=== PATIENT | female | born 1970 | race Caucasian/White ===

== ENCOUNTER → 2020-07-05 | Outpatient (REF) | payer OTHER, BC ==
[2020-07-05 16:44] LABS: BASO % 0.6 % (0.0-1.0); EOS # 0.1 10^3/uL (0.0-0.5); EOS % 2.1 % (0.0-3.0); HEMATOCRIT 41.6 % (36.0-47.0); HEMOGLOBIN 13.9 g/dl (12.0-15.5); LYMPH # 2.9 10^3/uL (1.5-5.0); LYMPH % 46.5 % (24.0-44.0); MEAN CORPUSCULAR HEMOGLOBIN 29.5 pg (27.0-33.0); MEAN CORPUSCULAR HGB CONC 33.4 g/dl (32.0-36.5); MEAN CORPUSCULAR VOLUME 88.3 fl (80.0-96.0); MONO # 0.4 10^3/uL (0.0-0.8); MONO % 6.4 % (0.0-5.0); NEUTROPHILS # 2.8 10^3/uL (1.5-8.5); NEUTROPHILS % 44.1 % (36.0-66.0); PLATELET COUNT, AUTOMATED 296 10^3/uL (150-450); RED BLOOD COUNT 4.71 10^6/uL (4.00-5.40); WHITE BLOOD COUNT 6.3 10^3/uL (4.0-10.0)
[2020-07-05 17:26] LABS: ALBUMIN 4.1 GM/DL (3.2-5.2); ALT/SGPT 30 U/L (12-78); BILIRUBIN,TOTAL 0.5 MG/DL (0.2-1.0); BLOOD UREA NITROGEN 18 MG/DL (7-18); CARBON DIOXIDE LEVEL 21 MEQ/L (21-32); CHLORIDE LEVEL 101 MEQ/L (98-107); CREATININE FOR GFR 0.71 MG/DL (0.55-1.30); GLOMERULAR FILTRATION RATE > 60.0 (>51); GLUCOSE, FASTING 343 MG/DL (70-100); POTASSIUM SERUM 4.6 MEQ/L (3.5-5.1); SODIUM LEVEL 133 MEQ/L (136-145); TOTAL PROTEIN 7.4 GM/DL (6.4-8.2)
[2020-07-05 17:46] LABS: HEMOGLOBIN A1c 13.3 %
[2020-07-06 12:06] LABS: CREATININE, URINE 55.3 MG/DL; MALB URINE SIEMENS 13.7 MG/L; MAU/CREAT RATIO 24.7 MCG/MG (0.0-30.0)
== END ==
LOC: M LAB REF 16:20
PROVIDERS: ATTEND Physician Assistant
DX: F41.1 Generalized anxiety disorder (principal); E11.9 Type 2 diabetes mellitus without complications

== ENCOUNTER → 2020-08-09 | Outpatient (REF) | payer OTHER ==
[2020-08-09 13:41] LABS: BLOOD UREA NITROGEN 17 MG/DL (7-18); CALCIUM LEVEL 9.4 MG/DL (8.5-10.1); CARBON DIOXIDE LEVEL 24 MEQ/L (21-32); CHLORIDE LEVEL 99 MEQ/L (98-107); CHOLESTEROL LEVEL 238 MG/DL (<200); CREATININE FOR GFR 0.68 MG/DL (0.55-1.30); GLOMERULAR FILTRATION RATE > 60.0 (>51); GLUCOSE, FASTING 292 MG/DL (70-100); HDL CHOLESTEROL 53 MG/DL (>40); LDL CHOLESTEROL 149 MG/DL (<100); NON-HDL-C 185 MG/DL; POTASSIUM SERUM 4.2 MEQ/L (3.5-5.1); SODIUM LEVEL 130 MEQ/L (136-145); TRIGLYCERIDES LEVEL 181 MG/DL (<150)
== END ==
LOC: M LAB REF 12:45
PROVIDERS: ATTEND Physician Assistant
DX: E11.65 Type 2 diabetes mellitus with hyperglycemia (principal)

== ENCOUNTER → 2020-09-14 | Outpatient (REF) | payer BC, OTHER ==
[2020-09-14 22:37] LABS: APPEARANCE, URINE CLOUDY (CLEAR); BACTERIA, URINE AUTO NEGATIVE (NEGATIVE); BILIRUBIN, URINE AUTO NEGATIVE (NEGATIVE); BLOOD, URINE BLOOD 2+ (NEGATIVE); CALCIUM OXALATE CRYSTALS MODERATE; COLOR, URINE YELLOW (YELLOW); GLUCOSE, URINE (UA) AUTO 3+ mg/dL (NEGATIVE); KETONE, URINE AUTO TRACE mg/dL (NEGATIVE); LEUKOCYTE ESTERASE, URINE AUTO 1+ (NEGATIVE); MUCUS, URINE SMALL (NEGATIVE); NITRITE, URINE AUTO NEGATIVE (NEGATIVE); PROTEIN, URINE AUTO NEGATIVE (NEGATIVE); RBC, URINE AUTO 10 /HPF (0-3); SPECIFIC GRAVITY URINE AUTO 1.031 (1.002-1.035); SQUAMOUS EPITHELIAL CELL UR AU 1 /HPF (0-6); UROBILINOGEN, URINE AUTO 0.2 mg/dL (0.0-2.0); WBC, URINE AUTO 103 /HPF (0-3)
== END ==
LOC: M LAB 22:04
PROVIDERS: ATTEND Physician Assistant
DX: N39.0 Urinary tract infection, site not specified (principal)

== ENCOUNTER → 2020-09-20 | Outpatient (REF) | payer OTHER ==
[2020-09-20 16:26] LABS: ALBUMIN 3.9 GM/DL (3.2-5.2); BILIRUBIN,TOTAL 0.6 MG/DL (0.2-1.0); CALCIUM LEVEL 9.1 MG/DL (8.5-10.1); CREATININE FOR GFR 1.06 MG/DL (0.55-1.30); GLOMERULAR FILTRATION RATE 58.4 (>51); POTASSIUM SERUM 4.5 MEQ/L (3.5-5.1)
[2020-09-20 16:31] LABS: HEMATOCRIT 37.3 % (36.0-47.0); HEMOGLOBIN 12.5 g/dl (12.0-15.5); MEAN CORPUSCULAR HEMOGLOBIN 29.9 pg (27.0-33.0); MEAN CORPUSCULAR HGB CONC 33.5 g/dl (32.0-36.5); MEAN CORPUSCULAR VOLUME 89.2 fl (80.0-96.0); PLATELET COUNT, AUTOMATED 358 10^3/uL (150-450); RED BLOOD COUNT 4.18 10^6/uL (4.00-5.40); WHITE BLOOD COUNT 5.7 10^3/uL (4.0-10.0)
[2020-09-20 17:33] LABS: HEMOGLOBIN A1c 10.7 %
== END ==
LOC: M LAB REF 15:43
PROVIDERS: ATTEND Physician Assistant
DX: E11.65 Type 2 diabetes mellitus with hyperglycemia (principal)

== ENCOUNTER → 2021-04-02 | Outpatient (CLI) | payer BC, OTHER ==
--- NOTE | 2021-04-02 17:08 | REPVR ---
PROCEDURE INFORMATION: Exam: CT Maxillofacial Without Contrast, Sinus Exam date and time: 04/02/2021 1:38 PM Age: 51 years old Clinical indication: Maxilla pain; Additional info: Chronic sinusitis TECHNIQUE: Imaging protocol: CT Maxillofacial without contrast. Focus on the sinuses. Radiation optimization: All CT scans at this facility use at least one of these dose optimization techniques: automated exposure control; mA and/or kV adjustment per patient size (includes targeted exams where dose is matched to clinical indication); or iterative reconstruction. COMPARISON: No relevant prior studies available. FINDINGS: Frontal sinuses: Normal. No air-fluid levels. Ethmoid air cells: Normal. No air-fluid levels. Sphenoid sinuses: Normal. No air-fluid levels. Maxillary sinuses: Normal. No air-fluid levels. Ostiomeatal units are patent. Nasal cavity/Septum: Leftward bowing of the anterior nasal septum is present. Orbital cavity: Orbits are normal. Globes are unremarkable. Bones/joints: Unremarkable. Soft tissues: Unremarkable. IMPRESSION: No acute abnormality. Electronically signed by: Blair Polanco On 04/02/2021 17:08:15 PM
== END ==
LOC: M PLAIMG 13:15
PROVIDERS: ATTEND Physician Assistant
DX: J32.9 Chronic sinusitis, unspecified (principal)

== ENCOUNTER 2021-12-10 07:52 | Emergency (ER) | payer BC, OTHER ==
[~2021-12-10] VITALS: Ht 154.9 cm; Wt 65.9 kg
[2021-12-10 07:52] VITALS: BP 187/81
[2021-12-10] MEDS ORDERED: HYDR12.55 (08:02)
[2021-12-10] MEDS ORDERED: GLIP10TA18 (08:02)
[2021-12-10] MEDS ORDERED: ALBU8.5H (08:02)
[2021-12-10] MEDS ORDERED: ADV250INH (08:02)
[2021-12-10] MEDS ORDERED: HYDR-643 (08:02)
[2021-12-10] MEDS ORDERED: METF10004 (08:02)
[2021-12-10] MEDS ORDERED: ASPI-226 (08:02)
[2021-12-10] MEDS ORDERED: MELO15TA28 (08:02)
[2021-12-10] MEDS ORDERED: LANTINJ4 (08:02)
[2021-12-10] MEDS ORDERED: ATOR1TAB19 (08:02)
[2021-12-10] MEDS ORDERED: LOSA50TA28 (08:02)
[2021-12-10] MEDS ORDERED: AMLO1TAB24 (08:02)
[2021-12-10] MEDS ORDERED: LEXA1TAB2 (08:02)
[2021-12-10] MEDS ORDERED: IBUP-1022 PO (08:06)
[2021-12-10] MEDS ORDERED: ACETAMINOPHEN 325 MG TAB PO ONE (09:55)
== END 2021-12-10 10:22 | disposition home or self-care (01) ==
LOC: M ED 07:52
DX: S83.411A Sprain of medial collateral ligament of right knee, initial encounter (principal); X50.9XXA Other and unspecified overexertion or strenuous movements or postures, initial encounter; I10 Essential (primary) hypertension; E78.5 Hyperlipidemia, unspecified; E11.9 Type 2 diabetes mellitus without complications; Z79.84 Long term (current) use of oral hypoglycemic drugs; Z79.51 Long term (current) use of inhaled steroids; Z79.899 Other long term (current) drug therapy

== ENCOUNTER → 2021-12-10 | Outpatient (CLI) | payer BC, OTHER ==
[~2021-12-10] MED LIST: ADV250INH; ALBU8.5H; AMLO1TAB24; ASPI-226; ATOR1TAB19; GLIP10TA18; HYDR-643; HYDR12.55; IBUP-1022 PO; LANTINJ4; LEXA1TAB2; LOSA50TA28; MELO15TA28; METF10004
== END ==
LOC: M RAD 07:35
PROVIDERS: ATTEND Nurse Practitioner Family
DX: J32.4 Chronic pansinusitis (principal)

== ENCOUNTER → 2022-06-20 | Outpatient (CLI) | payer BC, OTHER | LOC: M WUC 09:55 | PROVIDERS: ATTEND Physician Assistant | DX: M54.50 Low back pain, unspecified (principal); M54.32 Sciatica, left side ==

== ENCOUNTER → 2022-12-16 | Outpatient (REF) | payer OTHER ==
[2022-12-16 17:10] LABS: CALCIUM LEVEL 8.6 MG/DL (8.5-10.1); CREATININE FOR GFR 1.28 MG/DL (0.55-1.30); GLOMERULAR FILTRATION RATE 46.6 (>51); POTASSIUM SERUM 4.7 MMOL/L (3.5-5.1)
[2022-12-16 17:31] LABS: HEMOGLOBIN A1c 8.5 % (4.0-6.0)
[2022-12-16 17:47] LABS: HEPATITIS C VIRUS ABY INDEX 0.1 INDEX (<0.8)
== END ==
LOC: M LAB REF 16:07
PROVIDERS: ATTEND Physician Assistant
DX: Z11.59 Encounter for screening for other viral diseases (principal); I10 Essential (primary) hypertension; E11.8 Type 2 diabetes mellitus with unspecified complications

== ENCOUNTER → 2023-02-04 | Outpatient (REF) | payer OTHER ==
[2023-02-04 18:37] LABS: ALBUMIN 4.1 G/DL (3.2-5.2); CREATININE FOR GFR 1.2 MG/DL (0.55-1.30); PHOSPHORUS LEVEL 3.1 MG/DL (2.5-4.9)
== END ==
LOC: M LAB REF 17:16
PROVIDERS: ATTEND Physician Assistant
DX: N18.9 Chronic kidney disease, unspecified (principal)

== ENCOUNTER → 2023-04-13 | Outpatient (REF) | payer OTHER | LOC: M LAB REF 04-11 16:28 | PROVIDERS: ATTEND Nurse Practitioner Family | DX: R19.7 Diarrhea, unspecified (principal) ==

== ENCOUNTER → 2023-04-14 | Outpatient (REF) | payer OTHER ==
[2023-04-14 17:43] LABS: BLOOD UREA NITROGEN 24 MG/DL (9-23); CALCIUM LEVEL 10.2 MG/DL (8.5-10.1); CARBON DIOXIDE LEVEL 19 MMOL/L (20-31); CHLORIDE LEVEL 108 MMOL/L (98-107); GLUCOSE, FASTING 167 MG/DL (60-100); POTASSIUM SERUM 4.5 MMOL/L (3.5-5.1); SODIUM LEVEL 138 MMOL/L (136-145)
== END ==
LOC: M LAB REF 16:42
PROVIDERS: ATTEND Nurse Practitioner Family
DX: Z11.9 Encounter for screening for infectious and parasitic diseases, unspecified (principal); E87.6 Hypokalemia

== ENCOUNTER → 2023-11-07 | Outpatient (REF) | payer OTHER ==
[2023-11-07 12:39] LABS: ALBUMIN 3.9 G/DL (3.2-5.2); BILIRUBIN,TOTAL 0.3 MG/DL (0.3-1.2); CALCIUM LEVEL 9.4 MG/DL (8.5-10.1); CHOLESTEROL RISK RATIO 5.31 (<5); CREATININE FOR GFR 1.6 MG/DL (0.55-1.30); GLOMERULAR FILTRATION RATE 35.9 (>51); HDL CHOLESTEROL 31.4 MG/DL (>40); LDL CHOLESTEROL 97.6 MG/DL (<100); NON-HDL-C 135.6 MG/DL; POTASSIUM SERUM 4.7 MMOL/L (3.5-5.1); TOTAL PROTEIN 7.1 G/DL (5.7-8.2)
[2023-11-07 12:42] LABS: CREATININE, URINE 88.7 MG/DL
[2023-11-07 12:44] LABS: MAU/CREAT RATIO 215.3 MCG/MG (0.0-30.0)
[2023-11-07 12:45] LABS: HEMATOCRIT 34.6 % (36.0-47.0); HEMOGLOBIN 11.5 g/dl (12.0-15.5); MEAN CORPUSCULAR HEMOGLOBIN 29.4 pg (27.0-33.0); MEAN CORPUSCULAR HGB CONC 33.2 g/dl (32.0-36.5); MEAN CORPUSCULAR VOLUME 88.5 fl (80.0-96.0); PLATELET COUNT, AUTOMATED 334 10^3/uL (150-450); RED BLOOD COUNT 3.91 10^6/uL (4.00-5.40); WHITE BLOOD COUNT 7.5 10^3/uL (4.0-10.0)
[2023-11-07 12:54] LABS: HEMOGLOBIN A1c 9.5 % (4.0-6.0)
== END ==
LOC: M LAB REF 11:21
PROVIDERS: ATTEND Physician Assistant
DX: E11.65 Type 2 diabetes mellitus with hyperglycemia (principal)

== ENCOUNTER → 2024-02-04 | Outpatient (REF) | payer OTHER ==
[2024-02-04 17:14] LABS: HEMATOCRIT 27.5 % (36.0-47.0); MEAN CORPUSCULAR HEMOGLOBIN 29.5 pg (27.0-33.0); MEAN CORPUSCULAR HGB CONC 32.7 g/dl (32.0-36.5); MEAN CORPUSCULAR VOLUME 90.2 fl (80.0-96.0); PLATELET COUNT, AUTOMATED 287 10^3/uL (150-450); RED BLOOD COUNT 3.05 10^6/uL (4.00-5.40); WHITE BLOOD COUNT 6.2 10^3/uL (4.0-10.0)
[2024-02-04 17:26] LABS: CALCIUM LEVEL 8.8 MG/DL (8.5-10.1); CREATININE FOR GFR 1.27 MG/DL (0.55-1.30); GLOMERULAR FILTRATION RATE 46.7 (>51); POTASSIUM SERUM 4.4 MMOL/L (3.5-5.1)
== END ==
LOC: M LAB REF 16:32
PROVIDERS: ATTEND Physician Assistant
DX: N18.9 Chronic kidney disease, unspecified (principal); E11.65 Type 2 diabetes mellitus with hyperglycemia

== ENCOUNTER → 2024-03-15 | Outpatient (REF) | payer OTHER ==
[2024-03-15 17:35] LABS: CALCIUM LEVEL 9.3 MG/DL (8.5-10.1); CREATININE FOR GFR 1.45 MG/DL (0.55-1.30); GLOMERULAR FILTRATION RATE 40.1 (>51); PERCENT SATURATION 21.3 % (13.2-45.0); POTASSIUM SERUM 4.8 MMOL/L (3.5-5.1)
[2024-03-15 17:38] LABS: FERRITIN 78.3 NG/ML (7.3-270.7); THYROID STIMULATING HORMONE 5.501 uIU/ML (0.55-4.78)
== END ==
LOC: M LAB REF 16:49
PROVIDERS: ATTEND Physician Assistant
DX: I10 Essential (primary) hypertension (principal); D64.9 Anemia, unspecified

== ENCOUNTER → 2024-06-15 | Outpatient (REF) | payer OTHER ==
[2024-06-15 15:02] LABS: ALBUMIN 3.7 G/DL (3.2-5.2); CALCIUM LEVEL 9.6 MG/DL (8.5-10.1); CREATININE FOR GFR 1.9 MG/DL (0.55-1.30); GLOMERULAR FILTRATION RATE 29.3 (>51); PHOSPHORUS LEVEL 5.1 MG/DL (2.5-4.9); POTASSIUM SERUM 5.3 MMOL/L (3.5-5.1)
[2024-06-15 15:11] LABS: THYROID STIMULATING HORMONE 3.165 uIU/ML (0.55-4.78)
== END ==
LOC: M LAB REF 13:05
PROVIDERS: ATTEND Physician Assistant
DX: N18.9 Chronic kidney disease, unspecified (principal); E03.9 Hypothyroidism, unspecified

== ENCOUNTER → 2024-07-13 | Outpatient (CLI) | payer BC | LOC: M RAD 08:43 | PROVIDERS: ATTEND Internal Medicine Nephrology | DX: N18.32 Chronic kidney disease, stage 3b (principal) ==

== ENCOUNTER → 2024-12-06 | Outpatient (CLI) | payer BC ==
[~2024-12-06] MED LIST changes: -ADV250INH; +ADVA1AER9; +GLIP-320; -GLIP10TA18
== END ==
LOC: M RAD 08:12
PROVIDERS: ATTEND Internal Medicine Nephrology
DX: I70.1 Atherosclerosis of renal artery (principal)

== ENCOUNTER → 2024-12-15 | Outpatient (REF) | payer BC, OTHER | LOC: M LAB REF 17:36 | PROVIDERS: ATTEND Internal Medicine Nephrology | DX: D50.9 Iron deficiency anemia, unspecified (principal) ==

== ENCOUNTER → 2024-12-31 | Outpatient (CLI) | payer BC, OTHER | LOC: M LAB 11:18 | PROVIDERS: ATTEND Nurse Practitioner Family | DX: E11.65 Type 2 diabetes mellitus with hyperglycemia (principal) ==

== ENCOUNTER → 2025-04-01 | Outpatient (CLI) | payer BC | LOC: M WUC 12:18 | PROVIDERS: ATTEND Nurse Practitioner Family | DX: E11.65 Type 2 diabetes mellitus with hyperglycemia (principal) ==

== ENCOUNTER 2025-04-27 13:33 | Observation (INO) | payer BC ==
[~2025-04-27] VITALS: Ht 154.9 cm; Wt 69.9 kg
[~2025-04-27 13:33] MED LIST changes: -ADVA1AER9; +ADVA1AER9 INH; -ALBU8.5H; +ALBU8.5H INH; +AMLO1TAB25 PO; -ASPI-226; +ASPI-226 PO; -ATOR1TAB19; +ATOR1TAB19 PO; +CALC667T4 PO; +FARX1TAB3 PO; +FLUTISP; +HYDR-3490 PO; +HYDR100T PO; -LANTINJ4; +LANTINJ4 INJ; +LEVOTAB10 PO; +LEXA1TAB2 PO; +LOSA100T46 PO; +NOVOINJ3 INJ; +ONDA-83 PO
[2025-04-27] MEDS ORDERED: GLYCOPYRROLATE INJ 0.2 MG/ML 2 ML VIAL As Ordered ONE (14:30)
[2025-04-27] MEDS ORDERED: MIDAZOLAM INJ 2 MG/2 ML VIAL As Ordered ONE (14:30)
[2025-04-27] MEDS ORDERED: LIDOCAINE 2% 100 MG/5 ML SDV (FOR ANES.) As Ordered ONE (14:31)
[2025-04-27] MEDS ORDERED: NEOSTIGMINE 10 MG/10 ML VIAL As Ordered ONE (14:31)
[2025-04-27] MEDS ORDERED: ONDANSETRON 4MG 2ML VIAL As Ordered ONE (14:31)
[2025-04-27] MEDS ORDERED: dexAMETHasone 4 MG/ML 1 ML VIAL As Ordered ONE (14:31)
[2025-04-27] MEDS ORDERED: CISATRACURIUM 2 MG/ML 5 ML VIAL As Ordered ONE (14:43)
[2025-04-27] MEDS: LR 1,000 ML IV SCH ×2 (15:05→17:10)
[2025-04-27] MEDS: SCOPOLAMINE 1MG TRANSDERMAL PATCH TOP ONE (15:14)
[2025-04-27] MEDS ORDERED: ACETAMINOPHEN 1000MG/100ML IV BAG As Ordered ONE (15:30)
[2025-04-27] MEDS ORDERED: CALCIUM CHLORIDE 10% 1 GM/10 ML SYR As Ordered ONE (15:57)
[2025-04-27] MEDS: HEPARIN SOD 5000 UNITS/ML 1 ML VIAL/SYRINGE As Ordered ONE (16:33)
[2025-04-27] MEDS ORDERED: DEXTROSE 50% 50 ML SYRINGE As Ordered ONE (16:58)
[2025-04-27] MEDS: DEXTROSE 50% 50 ML SYRINGE IV STA (16:59)
[2025-04-27] MEDS: ONDANSETRON 4MG 2ML VIAL IV PRN (17:07)
[2025-04-27] MEDS ORDERED: HYDROMORPHONE HCL 0.5 MG/0.5 ML SYRINGE IV PRN (17:10)
[2025-04-27] MEDS: LABETALOL 100 MG/20 ML VIAL IV PRN (17:34)
[2025-04-27] MEDS: **hydrALAZINE** 50 MG TAB PO ONE (17:38)
[2025-04-27] MEDS: hydroCHLOROthiazide 25 MG TAB PO ONE (17:38)
[2025-04-27] MEDS: LOSARTAN 50 MG TABLET PO ONE (17:38)
[2025-04-27] MEDS: hydrALAZINE 20 MG/ML 1 ML VIAL IV PRN (18:04)
[2025-04-27 19:19] LABS: BASO # 0.0 10^3/uL (0.0-0.2); BASO % 0.5 % (0.0-1.0); EOS # 0.1 10^3/uL (0.0-0.5); EOS % 1.2 % (0.0-3.0); LYMPH # 1.7 10^3/uL (1.5-5.0); LYMPH % 22.6 % (24.0-44.0); MONO # 0.2 10^3/uL (0.0-0.8); MONO % 2.2 % (2.0-8.0); NEUTROPHILS # 5.4 10^3/uL (1.5-8.5); NEUTROPHILS % 73.2 % (36.0-66.0); PLATELET COUNT, AUTOMATED 246 10^3/uL (150-450)
[2025-04-27] MEDS ORDERED: GLUCAGON INJ 1 MG VIAL SC PRN (19:30)
[2025-04-27] MEDS ORDERED: DEXTROSE 50% 50 ML SYRINGE IV PRN (19:30)
[2025-04-27] MEDS ORDERED: GLUCOSE 4 GM CHEW PO PRN (19:30)
[2025-04-27 19:49] LABS: ALT/SGPT 17.0 U/L (7.0-40); AST/SGOT 19.0 U/L (<34); CALCIUM LEVEL 9.8 MG/DL (8.5-10.1); CARBON DIOXIDE LEVEL 13.0 MMOL/L (20-31); CHLORIDE LEVEL 113.0 MMOL/L (98-107); CREATININE FOR GFR 3.86 MG/DL (0.55-1.30); GLOMERULAR FILTRATION RATE 13.2 (>51); MAGNESIUM LEVEL 2.4 MG/DL (1.8-2.4); PHOSPHORUS LEVEL 4.1 MG/DL (2.5-4.9); POTASSIUM SERUM 4.5 MMOL/L (3.5-5.1); SODIUM LEVEL 142.0 MMOL/L (136-145)
[2025-04-27 20:05] VITALS: BP 150/66; TEMP 98.2; O2SAT 97
[2025-04-27 20:41] VITALS: BP 163/69; TEMP 98.3; O2SAT 96
[2025-04-27] MEDS ORDERED: HOME MED LIST COMPLETE! XX SCH (21:00)
[2025-04-27] MEDS: INSULIN LISPRO (NovoLOG) PER UNIT SC SCH (21:00)
[2025-04-27 21:05] VITALS: BP 151/68; TEMP 98.5; O2SAT 98
[2025-04-27] MEDS: DOCUSATE SODIUM 100 MG CAPSULE PO SCH (21:33)
[2025-04-27] MEDS: ACETAMINOPHEN 325 MG TAB PO PRN (21:34)
[2025-04-27 22:00] VITALS: BP 136/63; TEMP 98.6; O2SAT 95
[2025-04-27 23:00] VITALS: BP 152/65; TEMP 98.6; O2SAT 96
[2025-04-27] MEDS ORDERED: ALBUTEROL 90 MCG/ACT 8 GM HFA INHALER INH PRN (23:30)
[2025-04-27] MEDS ORDERED: ADVAIR HFA 115/21 MCG INHALER INH PRN (23:30)
[2025-04-27] MEDS ORDERED: ONDANSETRON 4MG TAB PO PRN (23:30)
[2025-04-28] VITALS: BP 122/58; TEMP 98.5; O2SAT 96
[2025-04-28] MEDS: ATORVASTATIN 10 MG TAB PO SCH (00:13)
[2025-04-28] MEDS: LanTUS (INSULIN GLARGINE INJ) 1 UNITS/0.01 ML SC SCH (00:13)
[2025-04-28] MEDS: FLUTICASONE PROPIONATE 0.05% NASAL SPRAY 16 GM SCH (00:33)
[2025-04-28 01:00] VITALS: BP 126/57; TEMP 98.7; O2SAT 97
[2025-04-28 03:28] VITALS: BP 122/58; TEMP 98.6; O2SAT 98
[2025-04-28 07:32] LABS: PLATELET COUNT, AUTOMATED 233 10^3/uL (150-450)
[2025-04-28 08:09] VITALS: BP 177/74
[2025-04-28] MEDS: ESCITALOPRAM OXALATE 10 MG TABLET PO SCH (08:09)
[2025-04-28] MEDS: **hydrALAZINE** 50 MG TAB PO SCH (08:09)
[2025-04-28] MEDS: ASPIRIN 81 MG ENTERIC TABLET PO SCH (08:10)
[2025-04-28] MEDS: hydroCHLOROthiazide 25 MG TAB PO SCH (08:10)
[2025-04-28] MEDS: CALCIUM ACETATE 667 MG GELCAP PO SCH (08:10)
[2025-04-28] MEDS: amLODIPine 10 MG TAB PO SCH (08:10)
[2025-04-28] MEDS: DAPAGLIFLOZIN PROPANEDIOL 10 MG TABLET PO SCH (08:10)
[2025-04-28] MEDS: CETIRIZINE 10 MG TAB PO SCH (08:10)
[2025-04-28] MEDS: INSULIN LISPRO (NovoLOG) PER UNIT SC SCH (08:11)
[2025-04-28] MEDS: LOSARTAN 50 MG TABLET PO SCH (08:11)
[2025-04-28 08:15] VITALS: BP 177/74; TEMP 98.8; O2SAT 99
[2025-04-28] MEDS ORDERED: ACET32TAB PO (08:16)
[2025-04-28 08:28] LABS: ALT/SGPT 11.0 U/L (7.0-40); AST/SGOT 18.0 U/L (<34); CALCIUM LEVEL 9.2 MG/DL (8.5-10.1); CARBON DIOXIDE LEVEL 16.0 MMOL/L (20-31); CHLORIDE LEVEL 107.0 MMOL/L (98-107); CREATININE FOR GFR 4.2 MG/DL (0.55-1.30); GLOMERULAR FILTRATION RATE 11.9 (>51); MAGNESIUM LEVEL 2.3 MG/DL (1.8-2.4); POTASSIUM SERUM 5.9 MMOL/L (3.5-5.1); SODIUM LEVEL 137.0 MMOL/L (136-145)
[2025-04-28] MEDS ORDERED: DOXA1TAB42 PO (08:56)
[2025-04-28] MEDS ORDERED: FLUTICASONE PROPIONATE 0.05% NASAL SPRAY 16 GM SCH (09:00)
[2025-04-28] MEDS: PATIROMER SORBITEX CALCIUM 8.4GM POWDER PACKET PO ONE (09:29)
[2025-04-28] MEDS ORDERED: PATIROMER SORBITEX CALCIUM 8.4GM POWDER PACKET PO SCH (12:00)
[2025-04-29] MEDS ORDERED: PATIROMER SORBITEX CALCIUM 8.4GM POWDER PACKET PO SCH (12:00)
== END 2025-04-28 09:38 | disposition home or self-care (01) ==
LOC: M SDC 13:33 → M RR INP 13:34 → M MS4PR 20:02
PROVIDERS: ADMIT Student in an Organized Health Care Education/Training Program; ATTEND Surgery
DX: N18.6 End stage renal disease (principal); E11.22 Type 2 diabetes mellitus with diabetic chronic kidney disease; I12.0 Hypertensive chronic kidney disease with stage 5 chronic kidney disease or end stage renal disease; G43.909 Migraine, unspecified, not intractable, without status migrainosus; J45.909 Unspecified asthma, uncomplicated; Z79.51 Long term (current) use of inhaled steroids; Z79.4 Long term (current) use of insulin; Z79.82 Long term (current) use of aspirin; Z79.899 Other long term (current) drug therapy; F41.9 Anxiety disorder, unspecified
CPT/HCPCS: 36415; 49324; 80053; 83735; 84100; 84132; 85025; 85027; 93005; J0131; J0360; J0618; J0665; J0690; J1100; J1596; J1815; J1920; J2250; J2405; J2710; J3010

== ENCOUNTER → 2025-05-02 | Outpatient (CLI) | payer BC ==
[~2025-05-02] MED LIST changes: +ACET32TAB PO; +DOXA1TAB42 PO; -IBUP-1022 PO; +IBUP600T42 PO
[2025-05-02 19:32] LABS: HEPATITIS C VIRUS ABY INDEX < 0.02 INDEX (<0.8)
== END ==
LOC: M WUC 15:42
PROVIDERS: ATTEND Internal Medicine Nephrology
DX: N18.6 End stage renal disease (principal)

== ENCOUNTER → 2025-05-12 | Outpatient (CLI) | payer BC | LOC: M RAD 16:02 | PROVIDERS: ATTEND Internal Medicine Nephrology | DX: Z49.02 Encounter for fitting and adjustment of peritoneal dialysis catheter (principal) ==

== ENCOUNTER 2025-05-31 15:28 | Day surgery (SDC) | payer BC ==
[~2025-05-31] VITALS: Ht 154.9 cm; Wt 74.7 kg
[~2025-05-31 15:28] MED LIST changes: +ceFAZolin SOD 2 GM IV ONCE IV ONE
[2025-05-31] MEDS ORDERED: LR 1,000 ML IV SCH ×2 (15:35→19:35)
[2025-05-31] MEDS ORDERED: MIDAZOLAM INJ 2 MG/2 ML VIAL As Ordered ONE (17:01)
[2025-05-31] MEDS ORDERED: ONDANSETRON 4MG 2ML VIAL As Ordered ONE (17:02)
[2025-05-31] MEDS ORDERED: ACETAMINOPHEN 1000MG/100ML IV BAG As Ordered ONE (17:02)
[2025-05-31] MEDS ORDERED: LIDOCAINE 2% 100 MG/5 ML SDV (FOR ANES.) As Ordered ONE (17:02)
[2025-05-31] MEDS ORDERED: ROCURONIUM BROMIDE 50MG/5ML VIAL As Ordered ONE (17:02)
[2025-05-31] MEDS ORDERED: SUGAMMADEX SODIUM 200 MG/2 ML VIAL As Ordered ONE (17:02)
[2025-05-31] MEDS ORDERED: dexAMETHasone 4 MG/ML 1 ML VIAL As Ordered ONE (17:02)
[2025-05-31] MEDS ORDERED: SCOPOLAMINE 1MG TRANSDERMAL PATCH TOP ONE (17:15)
[2025-05-31] MEDS ORDERED: SCOPOLAMINE 1MG TRANSDERMAL PATCH As Ordered ONE (18:33)
[2025-05-31] MEDS ORDERED: HEPARIN SOD 5000 UNITS/ML 1 ML VIAL/SYRINGE As Ordered ONE (18:54)
[2025-05-31] MEDS ORDERED: ONDANSETRON 4MG 2ML VIAL IV PRN (19:35)
[2025-05-31] MEDS ORDERED: HYDROMORPHONE HCL 0.5 MG/0.5 ML SYRINGE IV PRN (19:35)
[2025-05-31] MEDS ORDERED: DEXTROSE 50% 50 ML SYRINGE IV PRN (19:55)
[2025-05-31] MEDS: DEXTROSE 50% 50 ML SYRINGE IV PRN (19:55)
[2025-05-31 20:41] VITALS: BP 154/76; TEMP 97.7; O2SAT 97
== END 2025-05-31 20:44 | disposition home or self-care (01) ==
LOC: M SDC 15:28
PROVIDERS: ATTEND Surgery
DX: T85.611A Breakdown (mechanical) of intraperitoneal dialysis catheter, initial encounter (principal); I12.0 Hypertensive chronic kidney disease with stage 5 chronic kidney disease or end stage renal disease; N18.30 Chronic kidney disease, stage 3 unspecified; E11.9 Type 2 diabetes mellitus without complications; F41.9 Anxiety disorder, unspecified; F32.A Depression, unspecified; G43.909 Migraine, unspecified, not intractable, without status migrainosus; J45.909 Unspecified asthma, uncomplicated; Z79.82 Long term (current) use of aspirin; Z79.84 Long term (current) use of oral hypoglycemic drugs; Z79.4 Long term (current) use of insulin; J30.2 Other seasonal allergic rhinitis
CPT/HCPCS: 36415; 49325; 84132; J0131; J0665; J0688; J1100; J2250; J2405; J2765; J3010

== ENCOUNTER → 2025-05-31 | Outpatient (REF) | payer OTHER ==
[2025-06-06 12:10] LABS: HEPATITIS B SURFACE ANTIBODY NEGATIVE (POSITIVE)
[2025-06-06 12:42] LABS: HEPATITIS C VIRUS ABY INDEX < 0.02 INDEX (<0.8)
== END ==
LOC: M LAB REF 11:38
PROVIDERS: ATTEND Internal Medicine Nephrology
DX: N18.6 End stage renal disease (principal)

== ENCOUNTER → 2025-06-06 | Outpatient (CLI) | payer BC ==
[~2025-06-06] MED LIST changes: -ceFAZolin SOD 2 GM IV ONCE IV ONE
[2025-06-06 18:12] LABS: HEPATITIS B SURFACE ANTIBODY NEGATIVE (POSITIVE)
[2025-06-06 18:44] LABS: HEPATITIS C VIRUS ABY INDEX < 0.02 INDEX (<0.8)
== END ==
LOC: M LAB 16:53
PROVIDERS: ATTEND Internal Medicine Nephrology
DX: N18.6 End stage renal disease (principal)

== ENCOUNTER 2025-06-08 10:32 | Emergency (ER) | payer BC ==
[~2025-06-08] VITALS: Ht 154.9 cm; Wt 76.3 kg
[2025-06-08] VITALS (8 sets, daily range): BP systolic 171–207; BP diastolic 74–90; TEMP 97.3–98.3; O2SAT 93–94
[2025-06-08 11:28] LABS: BASO # 0.1 10^3/uL (0.0-0.2); BASO % 0.6 % (0.0-1.0); EOS # 0.3 10^3/uL (0.0-0.5); EOS % 2.7 % (0.0-3.0); LYMPH # 2.2 10^3/uL (1.5-5.0); LYMPH % 20.8 % (24.0-44.0); MONO # 0.7 10^3/uL (0.0-0.8); MONO % 6.3 % (2.0-8.0); NEUTROPHILS # 7.2 10^3/uL (1.5-8.5); NEUTROPHILS % 69.0 % (36.0-66.0); PLATELET COUNT, AUTOMATED 302 10^3/uL (150-450)
[2025-06-08 12:11] LABS: ALT/SGPT 22 U/L (7.0-40); AST/SGOT 22 U/L (<34); CALCIUM LEVEL 8.5 MG/DL (8.5-10.1); CARBON DIOXIDE LEVEL 19 MMOL/L (20-31); CHLORIDE LEVEL 109 MMOL/L (98-107); CREATININE FOR GFR 3.03 MG/DL (0.55-1.30); GLOMERULAR FILTRATION RATE 17.6 (>51); POTASSIUM SERUM 4.5 MMOL/L (3.5-5.1); SODIUM LEVEL 137 MMOL/L (136-145)
[2025-06-08] MEDS ORDERED: HOME MED LIST COMPLETE! XX SCH (12:20)
[2025-06-08] MEDS: ASPIRIN 81 MG CHEWABLE TABLET PO ONE (15:01)
[2025-06-08] MEDS: **hydrALAZINE** 50 MG TAB PO ONE (17:31)
[2025-06-08] MEDS: amLODIPine 10 MG TAB PO ONE (17:32)
== END 2025-06-08 18:52 | disposition short-term general hospital (02) ==
LOC: M ED 10:32
DX: N18.6 End stage renal disease (principal); D63.1 Anemia in chronic kidney disease; I24.89 Other forms of acute ischemic heart disease; E11.9 Type 2 diabetes mellitus without complications; I10 Essential (primary) hypertension; J45.909 Unspecified asthma, uncomplicated; E78.5 Hyperlipidemia, unspecified; E03.9 Hypothyroidism, unspecified; Z79.82 Long term (current) use of aspirin; Z79.02 Long term (current) use of antithrombotics/antiplatelets; Z79.4 Long term (current) use of insulin; Z79.899 Other long term (current) drug therapy; Z91.048 Other nonmedicinal substance allergy status
CPT/HCPCS: 36430; 71045; 80048; 80076; 83880; 84484; 85025; 86850; 86900; 86901; 86920; 87486; 87581; 87633; 87798; 93005; 93041; 93971; 94760; 99285; P9016

== ENCOUNTER → 2025-07-14 | Outpatient (CLI) | payer BC | LOC: M LAB 15:28 | PROVIDERS: ATTEND Nurse Practitioner Family | DX: E11.65 Type 2 diabetes mellitus with hyperglycemia (principal) ==

== ENCOUNTER → 2025-07-14 | Outpatient (CLI) | payer BC ==
[2025-07-14 16:22] LABS: CHOLESTEROL LEVEL 205.0 MG/DL (<200); CHOLESTEROL RISK RATIO 5.67 (<5); LDL CHOLESTEROL 121.9 MG/DL (<100); NON-HDL-C 168.9 MG/DL; TRIGLYCERIDES LEVEL 235.0 MG/DL (<150)
[2025-07-14 16:26] LABS: FREE T4 1.24 NG/DL (0.89-1.76)
== END ==
LOC: M LAB 15:25
PROVIDERS: ATTEND Student in an Organized Health Care Education/Training Program
DX: E78.2 Mixed hyperlipidemia (principal); E03.9 Hypothyroidism, unspecified

== ENCOUNTER → 2025-07-22 | Outpatient (REF) | payer BC ==
[2025-07-22 18:38] LABS: HEPATITIS B SURFACE ANTIBODY NEGATIVE (POSITIVE)
[2025-07-22 19:09] LABS: HEPATITIS C VIRUS ABY INDEX < 0.02 INDEX (<0.8)
== END ==
LOC: M LAB REF 17:18
PROVIDERS: ATTEND Internal Medicine Nephrology
DX: N18.6 End stage renal disease (principal)